=== PATIENT | female | born 1945 | race Caucasian/White ===

== ENCOUNTER 2016-06-12 08:49 | Day surgery (SDC) | payer OTHER ==
[2016-06-10 10:18] VITALS: BMI 23.3
[~2016-06-12 08:49] MED LIST: LIDOCAINE HCL 1%, 10 MG/ML (20ML VIAL) IJ ONE
[2016-06-12] MEDS ORDERED: HEPARIN NA (PORCINE) 5,000 UNITS/ML 1ML VIAL ONE ×4 (09:43→12:20)
[2016-06-12] MEDS ORDERED: MIDAZOLAM HCL 2 MG/2 ML SINGLE DOSE VIAL ONE (10:37)
[2016-06-12] MEDS ORDERED: LIDOCAINE HCL 2% (20ML MULTI-DOSE VIAL) NR ONE (10:48)
[2016-06-12] MEDS ORDERED: PROPOFOL 20 ML ONE ×3 (10:48→12:24)
[2016-06-12] MEDS ORDERED: ceFAZolin SODIUM 1 GM VIAL IVPB ONE (10:49)
[2016-06-12] MEDS ORDERED: ceFAZolin SODIUM 1 GM VIAL ONE (10:51)
[2016-06-12] MEDS ORDERED: LIDOCAINE HCL 1%, 10 MG/ML (20ML VIAL) INF ONE (10:59)
[2016-06-12] MEDS ORDERED: LIDOCAINE HCL 1%, 10 MG/ML (20ML VIAL) IJ ONE (10:59)
[2016-06-12] MEDS ORDERED: HEPARIN NA (PORCINE) 5,000 UNITS/ML 1ML VIAL SQ ONE ×2 (10:59→12:26)
[2016-06-12] MEDS ORDERED: oxyCODONE HCL 5 MG TABLET PO PRN (12:29)
[2016-06-12] MEDS ORDERED: ONDANSETRON 4 MG/2 ML VIAL IVPUSH PRN (12:29)
[2016-06-12] MEDS ORDERED: LACTATED RINGERS SOLUTION 1,000 ML IV SCH (12:30)
--- NOTE | 2016-06-12 12:48 | OP ---
Operative Note - Note: Operative Date: 06/12/16 Pre-Operative Diagnosis: Left lower ext claudication Operation: Aortogram, LLE angiogram,SFA orbital atherectomy, SFA, popliteal artery DCB angioplasty , Tibial artery angioplasty, Popliteal artery and SFA stent placement Findings: SFA occlusion, STent occlusion, Tibial disease Post-Operative Diagnosis: Same as Pre-op Surgeon: Wero Orr Anesthesia: Fractional Estimated Blood Loss (mls): 40 Operative Report Dictated: Yes
--- NOTE | 2016-06-12 12:50 | HP ---
Admitting History and Physical - Admission Chief Complaint: LLE claudication - Smoking History Smoking history: Former smoker Have you smoked in the past 12 months: No If you are a former smoker, when did you quit?: 2014 - Alcohol/Substance Use Hx Alcohol Use: Yes (GLASS OF WINE weekly) Home Medications - Allergies Allergies/Adverse Reactions: Allergies Allergy/AdvReac Type Severity Reaction Status Date / Time No Known Allergies Allergy Verified 06/10/16 10:14 - Home Medications Home Medications: Ambulatory Orders Amlodipine Besylate [Norvasc -] 10 mg PO DAILY 05/10/15 Aspirin [Aspirin EC] 81 mg PO HS 05/10/15 Clopidogrel Bisulfate [Plavix -] 75 mg PO DAILY #30 tablet 05/10/15 Levothyroxine [Synthroid -] 25 mcg PO DAILY 05/10/15 Metoprolol Succinate [Toprol Xl -] 50 mg PO DAILY 05/10/15 Simvastatin [Zocor -] 20 mg PO HS 05/10/15 Lisinopril [Prinivil] 20 mg PO DAILY 06/10/16 Physical Examination Vital Signs: Vital Signs Temperature 97.4 F L 06/12/16 09:37 Pulse Rate 47 L 06/12/16 09:37 Respiratory Rate 18 06/12/16 09:37 Blood Pressure 183/74 06/12/16 09:37 O2 Sat by Pulse Oximetry (%) Constitutional: Yes: Well Nourished Eyes: Yes: WNL HENT: Yes: WNL, Thrush Cardiovascular: Yes: WNL Respiratory: Yes: WNL Gastrointestinal: Yes: WNL Assessment/Plan LLE claudication 1. for angiogram today
[2016-06-12 13:33] VITALS: TEMP 97.5
[2016-06-12 14:28] VITALS: BP 148/75; PULSE 58
--- NOTE | 2016-07-18 14:16 | OP ---
DATE OF OPERATION: 06/12/2016 PREOPERATIVE DIAGNOSIS: Left lower extremity claudication. POSTOPERATIVE DIAGNOSIS: Left lower extremity claudication. PROCEDURE: Aortogram, left lower extremity angiogram, superficial femoral artery orbital atherectomy, superficial femoral artery popliteal artery drug-coated balloon angioplasty, tibial artery angioplasty, popliteal artery and superficial femoral artery stent placement. FINDINGS: SFA occlusions, stent occlusion, tibial disease. SURGEON: Wero Richmond MD ANESTHESIA: Fractional. BLOOD LOSS: 40 mL. INDICATIONS: The patient is a 71-year-old female who has left lower extremity claudication for less than one block. It was decided that she would need an angiogram. Patient was consented for the procedure understanding all risks, benefits, and alternatives. She was then taken to the operating room. PROCEDURE IN DETAIL: Once in the operating room, she was placed on the operating table in the supine manner, and the area of the right and left groin was prepped and draped in the sterile surgical manner. We then injected 10 mL of 0.5% lidocaine over the right common femoral artery. We then took a micropuncture needle, punctured the right common femoral artery. A micropuncture wire was inserted. Micropuncture sheath was inserted. We then placed a 0.035 floppy guidewire up into the aorta followed by our traditional 5-Faroese sheath. We then placed an Omni Flush catheter up into the aorta and shot an angiogram by hand injection showing that the aorta and the iliac arteries were without any disease. We placed a 0.035 floppy guidewire into the left common femoral artery and our Omni Flush catheter followed. We then shot an angiogram of the left lower extremity showing that the common femoral artery was patent, profunda were patent. The SFA was occluded. There was a stent present there that was occluded. Distal popliteal artery was patent, and patient had anterior tibial artery disease, and there was 2-vessel runoff into the foot. At this point, we placed a 0.035 stiff guidewire into the SFA, took out our Omni Flush catheter and placed a 6 x 45 crossover sheath, 5000 units of IV heparin were administered to the patient. We then went ahead and used our 0.035 stiff guidewire followed by our Quick-Cross catheter, and we were able to cross the SFA occlusion and the stent that was occluded and placed our wire down into the anterior tibial artery. We then exchanged for a FiberWire. We then went ahead and performed using CSI Orbital Atherectomy device, we were able to perform atherectomy of the SFA above the stent that was occluded. We then went ahead and used a 6 x 150 drug-coated balloon and performed angioplasty of the SFA and the popliteal artery. We then went ahead and used a 2.5 x 220 balloon and performed anterior tibial artery angioplasty of the tibial artery. At this point, we shot a completion angiogram showing that the SFA was now patent, the stent was patent, the tibial artery was patent. There was good brisk flow into the foot. At this point, we brought out sheath up and over. StarClose device was successfully deployed in the right common femoral artery. Pressure was held for 5 minutes, and thereafter, there was no bleeding. The area was wet and dried, and Dermabond was placed. The patient tolerated the procedure with no complications. Patient transferred to PACU in stable condition. Total blood loss 40 mL. WERO RICHMOND DO [id number]
== END 2016-06-12 14:31 | disposition home or self-care (01) ==
LOC: JASU-SURG 08:49
PROVIDERS: ATTEND Surgery Vascular Surgery
PROC: 047L3Z1 Dilation of Left Femoral Artery using Drug-Coated Balloon, Percutaneous Approach (ICD-10-PCS; 2016-06-12)
PROC: 047Q3ZZ Dilation of Left Anterior Tibial Artery, Percutaneous Approach (ICD-10-PCS; 2016-06-12)
PROC: B41DYZZ Fluoroscopy of Aorta and Bilateral Lower Extremity Arteries using Other Contrast (ICD-10-PCS; 2016-06-12)
PROC: 047N35Z Dilation of Left Popliteal Artery with Two Drug-eluting Intraluminal Devices, Percutaneous Approach (ICD-10-PCS; principal; 2016-06-12 10:30)
DX: I70.212 Atherosclerosis of native arteries of extremities with intermittent claudication, left leg (principal)
CPT/HCPCS: 36245; 37227; 37228; C1725; C1875; 76000-TC; 94760; J1644

== ENCOUNTER 2017-03-26 09:27 | Day surgery (SDC) | payer OTHER ==
[2017-03-25 12:44] VITALS: BMI 23.3
[~2017-03-26 09:27] MED LIST changes: -LIDOCAINE HCL 1%, 10 MG/ML (20ML VIAL) IJ ONE; +LIDOCAINE HCL 1%, 10 MG/ML (50 mL VIAL) IJ ONE; +ceFAZolin SODIUM 1 GM VIAL IVPB ONE
[2017-03-26 10:06] LABS: INR 1.01 (0.82-1.09); PROTHROMBIN TIME (PATIENT) 11.4 SEC (9.98-11.88)
[2017-03-26 10:09] LABS: ACTIVATED PTT 28.9 SECONDS (26.9-34.4)
[2017-03-26] MEDS ORDERED: IBUPROFEN 800 MG/8 ML IJ IVPB PRN (10:59)
[2017-03-26] MEDS ORDERED: ONDANSETRON 4 MG/2 ML VIAL IVPUSH PRN (10:59)
[2017-03-26] MEDS ORDERED: ACETAMINOPHEN 1000 MG/100 ML VIAL (NON FORMULARY) IVPB ONE (11:02)
[2017-03-26] MEDS ORDERED: LIDOCAINE HCL 1%, 10 MG/ML (20ML VIAL) ONE (12:12)
[2017-03-26] MEDS ORDERED: HEPARIN NA (PORCINE) 5,000 UNITS/ML 1ML VIAL ONE (12:12)
[2017-03-26] MEDS ORDERED: MIDAZOLAM HCL 2 MG/2 ML SINGLE DOSE VIAL ONE ×2 (12:32)
[2017-03-26] MEDS ORDERED: ceFAZolin SODIUM 1 GM VIAL ONE (12:38)
[2017-03-26] MEDS ORDERED: ceFAZolin SODIUM 1 GM VIAL IVPB ONE (12:40)
[2017-03-26] MEDS ORDERED: LIDOCAINE HCL 1%, 10 MG/ML (50 mL VIAL) IJ ONE (12:44)
--- NOTE | 2017-03-26 13:40 | OP ---
Operative Note - Note: Operative Date: 03/26/17 Pre-Operative Diagnosis: LLE claudication Operation: Aortogram, LLE angiogram, SFA, Popliteal artery DCB angioplasty Findings: SFA instent restenosis Pop artery 95% stenosis beyond stent Post-Operative Diagnosis: Same as Pre-op Surgeon: Wero Orr Anesthesia: Fractional Estimated Blood Loss (mls): 50 Operative Report Dictated: Yes
--- NOTE | 2017-03-26 13:44 | HP ---
Admitting History and Physical - Admission Chief Complaint: Right lower ext claudication Limitations to Obtaining History: No Limitations - Smoking History Smoking history: Former smoker Have you smoked in the past 12 months: No If you are a former smoker, when did you quit?: 2014 - Alcohol/Substance Use Hx Alcohol Use: Yes (GLASS OF WINE) Home Medications - Allergies Allergies/Adverse Reactions: Allergies Allergy/AdvReac Type Severity Reaction Status Date / Time No Known Allergies Allergy Verified 03/25/17 12:37 - Home Medications Home Medications: Ambulatory Orders Amlodipine Besylate [Norvasc -] 10 mg PO DAILY 05/10/15 Aspirin [Aspirin EC] 81 mg PO HS 05/10/15 Clopidogrel Bisulfate [Plavix -] 75 mg PO DAILY #30 tablet 05/10/15 Levothyroxine [Synthroid -] 25 mcg PO DAILY 05/10/15 Metoprolol Succinate [Toprol Xl -] 50 mg PO DAILY 05/10/15 Simvastatin [Zocor -] 20 mg PO HS 05/10/15 Lisinopril [Prinivil] 20 mg PO DAILY 06/10/16 Fenofibrate 160 mg PO DAILY 03/16/17 Review of Systems - Review of Systems Constitutional: reports: No Symptoms Eyes: reports: No Symptoms HENT: reports: No Symptoms Neck: reports: No Symptoms Cardiovascular: reports: No Symptoms Respiratory: reports: No Symptoms Gastrointestinal: reports: No Symptoms Genitourinary: reports: No Symptoms Breasts: reports: No Symptoms Reported Musculoskeletal: reports: No Symptoms Integumentary: reports: No Symptoms Neurological: reports: No Symptoms Endocrine: reports: No Symptoms Hematology/Lymphatic: reports: No Symptoms Psychiatric: reports: No Symptoms Physical Examination Vital Signs: Vital Signs Temperature 98 F 03/26/17 10:38 Pulse Rate 48 L 03/26/17 10:38 Respiratory Rate 18 03/26/17 10:38 Blood Pressure 139/59 03/26/17 10:38 O2 Sat by Pulse Oximetry (%) 97 03/26/17 10:38 Constitutional: Yes: Well Nourished, No Distress, Calm Eyes: Yes: WNL, Conjunctiva Clear, EOM Intact HENT: Yes: WNL, Atraumatic, Normocephalic Neck: Yes: WNL, Supple, Trachea Midline Cardiovascular: Yes: WNL, Regular Rate and Rhythm Respiratory: Yes: WNL, Regular, CTA Bilaterally Gastrointestinal: Yes: WNL, Normal Bowel Sounds Musculoskeletal: Yes: WNL Extremities: Yes: WNL Edema: No Integumentary: Yes: WNL Neurological: Yes: WNL, Alert, Oriented ...Motor Strength: WNL Psychiatric: Yes: WNL Problem List - Problems (1) Claudication Code(s): I73.9 - PERIPHERAL VASCULAR DISEASE, UNSPECIFIED Assessment/Plan LLE claudication 1. For angiogram today .
[2017-03-26] MEDS ORDERED: ACETAMINOPHEN INJECTION 100 ML IVPB ONE (14:19)
[2017-03-26 15:13] VITALS: TEMP 98.2
[2017-03-26 15:59] VITALS: BP 128/61; PULSE 60
--- NOTE | 2017-03-26 16:25 | OP ---
DATE OF OPERATION: 03/26/2017 PREOPERATIVE DIAGNOSIS: Left lower extremity claudication. POSTOPERATIVE DIAGNOSIS: Left lower extremity claudication. PROCEDURE: Aortogram, left lower extremity angiogram, superficial femoral artery, popliteal artery drug-coated balloon angioplasty. SURGEON: Wero Richmond D.O. ANESTHESIA: Fractional. BLOOD LOSS: 50 mL. INDICATION: The patient is a 72-year-old female that has SFA popliteal artery stents done in the past and now on preoperative ultrasound showed that there is disease in the in stent restenosis in the proximal portion of the stent and there is disease in the popliteal artery. The patient came into ambulatory surgery. Patient was consented for the procedure understanding all risks, benefits, and alternatives and then taken to the operating room. DESCRIPTION OF PROCEDURE: Once in the operating room, she was laid on the operating table in a supine manner, and the area of the right and left groin are prepped and draped in a sterile surgical manner. We then went ahead and injected 10 mL of lidocaine 1% over the right common femoral artery. We then went ahead and punctured the right common femoral artery using a Micropuncture needle. A Micropuncture wire was inserted, and a traditional 5-Turkish sheath was inserted. We then placed 0.035 floppy guidewire up into the aorta followed by an Omniflush catheter. We then shot an aortogram by hand injection showing that the aorta and the iliac arteries were without any disease. We then went ahead and used a 0.035 floppy guidewire, went up and over to the left common femoral artery and we were able to place our Omniflush catheter there. We then shot an angiogram of the left leg showing that the common femoral artery, the profunda, and proximal SFA were patent, but the proximal stent had about an 80% stenosis in it. The rest of the stent was patent and beyond the popliteal stent there was a 95% stenosis in the popliteal artery. The patient had 2-vessel runoff into the foot. At this point we used a 0.035 stiff guidewire and placed it into the SFA. We moved our Omniflush catheter. We then placed a 6 x 45 crossover sheath. 5000 units of IV heparin were administered to the patient. We then were able to place our wire down and get through all the areas of the stenosis using a seeker catheter. We placed a wire in the anterior chamber of the artery. We then went ahead and used a 5 x 220 balloon and performed angioplasty of the SFA popliteal artery segment that had been stenotic. We then went ahead and used a 5 x 4 Lutonix balloon and ballooned the popliteal artery stenosis. After that we went up to the in-stent stenosis and used a 6 x 4 Lutonix balloon and performed angioplasty of the in-stent stenosis. Completion angiogram now showed that the SFA was patent, the stents were patent, the popliteal artery was patent, and there was good runoff into the foot. At this point we decided no more intervention was needed, and we were able to bring the catheter up and over and out and deployed in the right common femoral artery. Pressure was held for 5 minutes until no more bleeding. Areas were then dried and Dermabond was placed. Patient tolerated the procedure without complications. Patient transferred back in stable condition. Total blood loss 50 mL. WERO RICHMOND DO [id number]
== END 2017-03-26 15:55 | disposition home or self-care (01) ==
LOC: JASU-SURG 09:27
PROVIDERS: ATTEND Surgery Vascular Surgery
PROC: 047N3Z1 Dilation of Left Popliteal Artery using Drug-Coated Balloon, Percutaneous Approach (ICD-10-PCS; principal; 2017-03-26 11:00)
DX: I70.212 Atherosclerosis of native arteries of extremities with intermittent claudication, left leg (principal); Z87.891 Personal history of nicotine dependence; I10 Essential (primary) hypertension
CPT/HCPCS: 37224; C2623; 36415; 76000-TC-FY; 85610; 85730; 94760; J0131; J1644

== ENCOUNTER 2017-05-07 07:28 | Day surgery (SDC) | payer OTHER ==
[2017-05-05 16:48] VITALS: BMI 23.3
[2017-05-07] MEDS ORDERED: LIDOCAINE HCL 1%, 10 MG/ML (20ML VIAL) ONE (08:20)
[2017-05-07] MEDS ORDERED: HEPARIN NA (PORCINE) 5,000 UNITS/ML 1ML VIAL ONE ×2 (08:20→09:39)
[2017-05-07] MEDS ORDERED: MIDAZOLAM HCL 2 MG/2 ML SINGLE DOSE VIAL ONE (09:02)
--- NOTE | 2017-05-07 09:14 | HP ---
Admitting History and Physical - Admission Chief Complaint: 72 year old female with claudication when she walks [place] the hill outside her home. Recent US showed stenosis of her Left sfa stent. Here for angiogram today. Limitations to Obtaining History: No Limitations - Smoking History Smoking history: Former smoker Have you smoked in the past 12 months: No If you are a former smoker, when did you quit?: 2014 - Alcohol/Substance Use Hx Alcohol Use: Yes (GLASS OF WINE) Home Medications - Allergies Allergies/Adverse Reactions: Allergies Allergy/AdvReac Type Severity Reaction Status Date / Time No Known Allergies Allergy Verified 03/25/17 12:37 - Home Medications Home Medications: Ambulatory Orders Amlodipine Besylate [Norvasc -] 10 mg PO DAILY 05/10/15 Levothyroxine [Synthroid -] 25 mcg PO DAILY 05/10/15 Metoprolol Succinate [Toprol Xl -] 50 mg PO DAILY 05/10/15 Simvastatin [Zocor -] 20 mg PO HS 05/10/15 Lisinopril [Prinivil] 20 mg PO DAILY 06/10/16 Fenofibrate 160 mg PO DAILY 03/16/17 Apixaban [Eliquis] 5 mg PO BID 05/05/17 Review of Systems - Review of Systems Constitutional: reports: No Symptoms Eyes: reports: No Symptoms HENT: reports: No Symptoms Neck: reports: No Symptoms Cardiovascular: reports: No Symptoms Respiratory: reports: No Symptoms Gastrointestinal: reports: No Symptoms Genitourinary: reports: No Symptoms Breasts: reports: No Symptoms Reported Musculoskeletal: reports: No Symptoms Integumentary: reports: No Symptoms Neurological: reports: No Symptoms Endocrine: reports: No Symptoms Hematology/Lymphatic: reports: No Symptoms Psychiatric: reports: No Symptoms Physical Examination Vital Signs: Vital Signs Temperature 97.5 F L 05/07/17 07:52 Pulse Rate 72 05/07/17 07:52 Respiratory Rate 20 05/07/17 07:52 Blood Pressure 125/70 05/07/17 07:52 O2 Sat by Pulse Oximetry (%) 98 05/07/17 07:52 Constitutional: Yes: Well Nourished, No Distress, Calm Eyes: Yes: WNL, Conjunctiva Clear, EOM Intact HENT: Yes: WNL, Atraumatic, Normocephalic Neck: Yes: WNL, Supple, Trachea Midline Cardiovascular: Yes: WNL, Regular Rate and Rhythm Respiratory: Yes: WNL, Regular, CTA Bilaterally Gastrointestinal: Yes: WNL, Normal Bowel Sounds Musculoskeletal: Yes: WNL Extremities: Yes: WNL Edema: No Integumentary: Yes: WNL Neurological: Yes: WNL, Alert, Oriented ...Motor Strength: WNL Psychiatric: Yes: WNL Problem List - Problems (1) Claudication Code(s): I73.9 - PERIPHERAL VASCULAR DISEASE, UNSPECIFIED Assessment/Plan Left Lower ext claudication 1. Left lower ext angiogram today for SFA stent restenosis. Wero Orr DO
[2017-05-07] MEDS ORDERED: PROPOFOL 20 ML ONE ×4 (09:20)
[2017-05-07] MEDS ORDERED: ceFAZolin SODIUM 1 GM VIAL IVPB ONE (09:40)
[2017-05-07] MEDS ORDERED: LIDOCAINE HCL 1%, 10 MG/ML (20ML VIAL) INF ONE ×2 (09:42)
[2017-05-07] MEDS ORDERED: ONDANSETRON 4 MG/2 ML VIAL IVPUSH PRN (10:53)
[2017-05-07] MEDS ORDERED: LACTATED RINGERS SOLUTION 1,000 ML IV SCH (11:00)
--- NOTE | 2017-05-07 11:13 | OP ---
Operative Note - Note: Operative Date: 05/07/17 Pre-Operative Diagnosis: LLE claudication Operation: Aortogram, LLE angiogram, Tibial artery atherectomy with angioplasty. Findings: TP trunk occlusion. Post-Operative Diagnosis: Same as Pre-op Surgeon: Wero Orr Anesthesia: Fractional Estimated Blood Loss (mls): 50 Operative Report Dictated: Yes
--- NOTE | 2017-05-07 12:08 | OP ---
DATE OF OPERATION: 05/07/2017 PREOPERATIVE DIAGNOSIS: Left lower extremity claudication. POSTOPERATIVE DIAGNOSIS: Left lower extremity claudication. PROCEDURE: Aortogram, left lower extremity angiogram, tibial artery atherectomy with angioplasty. SURGEON: Wero Richmond DO ANESTHESIA: Fractional. BLOOD LOSS: 50 mL. The patient is a 72-year-old female that has claudication while she walks up her hill every day in [employer]. She has the pain every single day in her left calf and she decided to come into the office. Ultrasound showed that she has tibial artery disease. She has had 3 angioplasties before where she has had an SFA stent placed as well. She came into ambulatory surgery. Patient was consented for the procedure, understanding all risks, benefits, alternatives. Then taken to the operating room. Once in the operating room, she was laid on the operative table in the supine manner and the area of the right and left groin was prepped and draped in sterile surgical manner. We then went ahead and injected 10 mL of lidocaine 1% over the right common femoral artery. We then took a micropuncture needle, punctured the right common femoral artery. Micropuncture wire was inserted and a traditional 5-Bulgarian sheath was inserted. We then placed a 0.035 floppy guidewire up into the aorta followed by an Omniflush catheter. We then shot an aortogram via hand injection showing that the aorta and the iliac arteries were without any disease. We then placed a 0.035 floppy guidewire up and over to the left common femoral artery followed by our Omniflush catheter. We then shot an angiogram of the left lower extremity showing that the common femoral artery, the profunda, the SFA were completely patent. The SFA stent was patent. The popliteal artery was patent. The patient had a TP trunk occlusion/stenosis of about 99%. Patient's main runoff is the peroneal artery going down to the ankle and giving off branches to the PT and the DP. At this point, we placed a 0.035 stiff guidewire down into the SFA. We removed our Omniflush catheter, placed a 6 x 45 crossover sheath. Heparin 5000 units IV were administered to the patient. We then went ahead and brought our 0.035 wire down to below the knee and exchanged it for a Viper wire. We removed the crossover. Using a quick-cross catheter, we were able to selectively cross the TP trunk occlusion and placed a wire to the peroneal artery. We then used the VGBio orbital atherectomy device and performed orbital atherectomy of the TP trunk on low, medium and high. We then shot a completion angiogram showing that the vessel was now patent and we went ahead and used a 2.5 x 8 Bard Ultraverse balloon and performed an angioplasty of the area. We then shot a completion angiogram showing that the TP trunk was now completely patent and there was good brisk flow down into the peroneal artery and in the distal foot. At this point, we brought our sheath up and over and the sheath was removed. Pressure was held in the right groin for 10 minutes. The patient was given 20 mg of protamine as well. After 5 to 10 minutes of compression, there was no more bleeding. The area was wet and dried and Dermabond was placed. The patient tolerated the procedure with no complication. The patient transferred to PACU in stable condition. Total blood loss 50 mL. WERO RICHMOND DO [id number]
[2017-05-07 12:42] VITALS: TEMP 97.5
[2017-05-07 16:27] VITALS: BP 131/74; PULSE 80
== END 2017-05-07 14:30 | disposition home or self-care (01) ==
LOC: JASU-SURG 07:28
PROVIDERS: ATTEND Surgery Vascular Surgery
PROC: 047Q3ZZ Dilation of Left Anterior Tibial Artery, Percutaneous Approach (ICD-10-PCS; principal; 2017-05-07 09:00)
DX: I70.212 Atherosclerosis of native arteries of extremities with intermittent claudication, left leg (principal); Z87.891 Personal history of nicotine dependence
CPT/HCPCS: 37229; C1885; 76000-TC-FY; 94760; J1644